=== PATIENT | female | born 1955 | race Caucasian/White ===

== ENCOUNTER 2025-05-13 15:27 | Inpatient (IN) | payer MEDICARE, BC ==
[~2025-05-13] VITALS: Ht 162.6 cm; Wt 83.9 kg
[2025-05-13] MEDS ORDERED: PIPERACI/TAZO 3.375GM/D5W 50ML PB IV ONE (16:04)
[2025-05-13] MEDS ORDERED: MORPHINE SULFATE INJ 4 MG/ML DISP.SYRIN ONE (16:05)
[2025-05-13 16:10] LABS: PLATELET COUNT (AUTO) 335 K/uL (150-450); RED BLOOD CELL COUNT(AUTO) 4.00 MIL/uL (4.0-5.2); RED CELL DISTRIBUTION WIDTH 19.0 % (11.5-15.0); WHITE BLOOD COUNT (AUTO) 10.4 K/uL (4.3-11.0)
[2025-05-13] MEDS ORDERED: ONDANSETRON HCL/PF 4 MG/2 ML VIAL ONE (16:12)
[2025-05-13 16:19] LABS: CALCIUM, SERUM 9.3 mg/dL (8.5-10.1); CREATININE 1.3 mg/dL (0.6-1.3); SODIUM SERUM 138.0 mmol/L (136-145); UREA NITROGEN, BLOOD 26.0 mg/dL (7-18)
[2025-05-13] MEDS: MORPHINE SULFATE INJ 2 MG/ML DISP.SYRIN IV ONE (16:20)
[2025-05-13] MEDS: PIPERACILLIN /TAZOBACTAM 3.375 G in IV D5W 50 ML IV ONE (16:20)
[2025-05-13 16:24] LABS: ASPARTATE AMINOTRANSFERASE 13.0 U/L (15-37); INR 3.19 (0.91-1.10); TOTAL PROTEIN, SERUM 7.1 g/dL (6.4-8.2)
[2025-05-13] MEDS: ONDANSETRON HCL/PF - ER 4 MG/2 ML VIAL IV ONE (16:28)
[2025-05-13 16:29] LABS: ERYTHROCYTE SEDIMENTATION RATE 63 MM/HR (0-30)
[2025-05-13] MEDS ORDERED: VANCOMYCIN 1 GM /D5W 250 ML PB IV ONE (17:09)
[2025-05-13] MEDS: VANCOMYCIN 1 GM in IV D5W 250 ML IV ONE (17:30)
[2025-05-13 18:00] VITALS: BP 167/85; TEMP 99.7; O2SAT 99
[2025-05-13] MEDS ORDERED: POTA10TA PO (18:09)
[2025-05-13] MEDS ORDERED: SEMA1PEN SQ (18:09)
[2025-05-13] MEDS ORDERED: ESZO2TAB31 PO (18:09)
[2025-05-13] MEDS ORDERED: WARF-58 PO (18:09)
[2025-05-13] MEDS ORDERED: [UNRECOGNIZED DRUG - CODE] PO (18:09)
[2025-05-13] MEDS ORDERED: GABA300C PO (18:09)
[2025-05-13] MEDS ORDERED: CARV6.252 PO (18:09)
[2025-05-13] MEDS ORDERED: HYDR-3980 PO (18:09)
[2025-05-13] MEDS ORDERED: DONE5TAB7 PO (18:09)
[2025-05-13] MEDS ORDERED: MEMA10TA56 PO (18:09)
[2025-05-13] MEDS ORDERED: PRED1TAB PO (18:09)
[2025-05-13] MEDS ORDERED: SERT25TA5 PO (18:09)
[2025-05-13] MEDS ORDERED: MYCO500T5 PO (18:09)
[2025-05-13] MEDS ORDERED: LOSA25TA27 PO (18:09)
[2025-05-13] MEDS ORDERED: DEXTROSE 50%-WATER 50 ML DISP.SYRIN IV PRN (18:30)
[2025-05-13] MEDS ORDERED: DOSING PER PHARMACY-VANCOMYCIN IV XX PRN (18:30)
[2025-05-13] MEDS ORDERED: ACETAMINOPHEN 325 MG TABLET PO PRN (18:30)
[2025-05-13] MEDS ORDERED: ONDANSETRON HCL/PF 4 MG/2 ML VIAL IVP PRN (18:30)
[2025-05-13] MEDS: MEMANTINE HCL 5 MG TABLET PO SCH (18:53)
[2025-05-13] MEDS: LOSARTAN POTASSIUM 25 MG TABLET PO SCH (18:53)
[2025-05-13] MEDS: CARVEDILOL 6.25 MG TABLET PO SCH (18:54)
[2025-05-13 20:00] VITALS: BP 139/84; TEMP 98.2; O2SAT 99
[2025-05-13 20:33] VITALS: BP 178/87; TEMP 98.2; O2SAT 99
[2025-05-13 20:40] VITALS: BP 139/84
[2025-05-13] MEDS: ENOXAPARIN SODIUM 80 MG/0.8 ML DISP.SYRIN SQ SCH (21:00)
[2025-05-13] MEDS: ZOLPIDEM TARTRATE 5 MG TABLET PO SCH (21:07)
[2025-05-13] MEDS: GABAPENTIN 300 MG CAPSULE PO SCH (21:07)
[2025-05-13] MEDS: BLOOD SUGAR DIAGNOSTIC 1 EACH STRIP VI SCH (21:07)
[2025-05-13] MEDS: DONEPEZIL 5 MG TABLET PO SCH (21:07)
[2025-05-13] MEDS ORDERED: CEFEPIME 1 GM in IV D5W 50 ML IV SCH (21:30)
[2025-05-13] MEDS ORDERED: CEFEPIME 1 GM VIAL ONE (21:51)
[2025-05-13] MEDS: CEFEPIME 1 GM in IV D5W 50 ML IV SCH (21:58)
[2025-05-13] MEDS: HYDROCODONE/APAP 10/325MG TABLET PO PRN (21:59)
[2025-05-14] MEDS: MORPHINE SULFATE INJ 2 MG/ML DISP.SYRIN IV PRN (01:36)
[2025-05-14] MEDS: VANCOMYCIN 750 MG in IV D5W 250 ML IV SCH (04:20)
[2025-05-14] MEDS ORDERED: CEFEPIME 1 GM VIAL ONE (05:37)
[2025-05-14 07:18] LABS: PLATELET COUNT (AUTO) 293 K/uL (150-450); RED BLOOD CELL COUNT(AUTO) 3.62 MIL/uL (4.0-5.2); RED CELL DISTRIBUTION WIDTH 19.2 % (11.5-15.0); WHITE BLOOD COUNT (AUTO) 5.5 K/uL (4.3-11.0)
[2025-05-14 07:30] VITALS: BP 165/71; TEMP 97.9; O2SAT 99
[2025-05-14] MEDS: MYCOPHENOLATE MOFETIL 250 MG CAPSULE PO SCH (08:13)
[2025-05-14] MEDS: SERTRALINE HCL 25 MG TABLET PO SCH (08:15)
[2025-05-14] MEDS: ALLOPURINOL 100 MG TABLET PO SCH (08:15)
[2025-05-14] MEDS: FERROUS SULFATE (325 MG) 325 MG/TAB TABLET PO SCH (08:15)
[2025-05-14 08:18] LABS: CALCIUM, SERUM 8.7 mg/dL (8.5-10.1); CREATININE 1.2 mg/dL (0.6-1.3); PHOSPHORUS 3.6 mg/dL (2.5-4.9); SODIUM SERUM 141.0 mmol/L (136-145); UREA NITROGEN, BLOOD 18.0 mg/dL (7-18)
[2025-05-14 09:00] VITALS: BP 149/72
[2025-05-14] MEDS: CEFEPIME 2 GM in IV D5W 100 ML IV SCH (10:07)
[2025-05-14] MEDS: IV NS 0.9% 1,000 ML IV ONE (10:07)
[2025-05-14] MEDS ORDERED: LIDOCAINE 1% INJ 50 ML MDV IJ ONE (11:30)
[2025-05-14] MEDS ORDERED: BUPIVACAINE 0.5 % PF 150 MG/30 ML VIAL ONE (11:30)
[2025-05-14] MEDS ORDERED: LIDOCAINE 1%-EPI 1:100,000 20 ML VIAL ONE (11:31)
[2025-05-14] MEDS: INSULIN REGULAR, HUMAN 100 UNIT/ML 3 ML VIAL SQ PRN (11:55)
[2025-05-14] MEDS ORDERED: BACITRACIN ZINC OINT (15 GM) 15 GM TUBE TP ONE (12:08)
[2025-05-14] MEDS ORDERED: FENTANYL PF 100MCG/2ML AMPUL ONE (12:23)
[2025-05-14 12:27] LABS: INR 2.57 (0.91-1.10)
[2025-05-14] MEDS ORDERED: VANCOMYCIN 1 GM VIAL ONE (12:44)
[2025-05-14 13:22] LABS: NEUTROPHILS % (MANUAL) 64 (42-76)
[2025-05-14 13:23] LABS: EOSINOPHILS % (MANUAL) 1 % (0-4); LYMPHOCYTES % (MANUAL) 27 % (16-48); MONOCYTES % (MANUAL) 8 % (0-11.0); PLATELET ESTIMATE ADEQUATE
[2025-05-14] MEDS: Magnesium 1GM/D5W 100ML PREMIX 100 ML IV SCH (14:04)
[2025-05-14 16:00] VITALS: BP_SYST 126; BP_SYST 132; BP_DIAS 65; BP_DIAS 82; TEMP 97.6; TEMP 98.1; O2SAT 100; O2SAT 96
[2025-05-14] MEDS: ARGININE/GLUTAMINE/CALCIUM BMB 1 EACH POWD.PACK PO SCH (17:30)
[2025-05-14 20:00] VITALS: BP 172/72; TEMP 99; O2SAT 99
[2025-05-14 20:35] VITALS: BP 162/75
[2025-05-14] MEDS: ALLOPURINOL 100 MG TABLET PO ONE (20:50)
[2025-05-14 21:33] LABS: APPEARANCE,URINE CLEAR (CLEAR); BLOOD, URINE NEGATIVE Ery/uL (NEGATIVE); LEUKOCYTE ESTERASE ,URINE NEGATIVE (NEGATIVE); NITRITE, URINE NEGATIVE (NEGATIVE); UGLUCOSE NEGATIVE (NEGATIVE)
[2025-05-14 21:40] LABS: ADD URINE CULTURE NO
[2025-05-14 21:59] LABS: EOSINOPHIL,URINE None Seen
[2025-05-14 22:04] LABS: CREATININE, URINE 29.8 MG/DL (30.0-125.0); URINE SODIUM, RANDOM 79.0 mmol/l (40-220); URINE TOTAL PROTEIN 27.0 mg/dL (0-11.9)
[2025-05-15 04:26] LABS: PLATELET COUNT (AUTO) 277 K/uL (150-450); RED BLOOD CELL COUNT(AUTO) 3.69 MIL/uL (4.0-5.2); RED CELL DISTRIBUTION WIDTH 18.6 % (11.5-15.0); WHITE BLOOD COUNT (AUTO) 6.8 K/uL (4.3-11.0)
[2025-05-15 04:46] LABS: CREATINE KINASE, TOTAL 36.0 U/L (26-192)
[2025-05-15 04:48] LABS: ASPARTATE AMINOTRANSFERASE 13.0 U/L (15-37); CALCIUM, SERUM 8.6 mg/dL (8.5-10.1); CREATININE 1.0 mg/dL (0.6-1.3); PHOSPHORUS 3.9 mg/dL (2.5-4.9); SODIUM SERUM 140.0 mmol/L (136-145); TOTAL PROTEIN, SERUM 6.4 g/dL (6.4-8.2); UREA NITROGEN, BLOOD 17.0 mg/dL (7-18)
[2025-05-15 04:58] LABS: INR 2.22 (0.91-1.10)
[2025-05-15 06:35] VITALS: BP 133/98
[2025-05-15 07:30] VITALS: BP 135/70; TEMP 98.4; O2SAT 95
[2025-05-15] MEDS: ASCORBIC ACID 500 MG TABLET PO SCH (09:04)
[2025-05-15] MEDS: WARFARIN SODIUM 5 MG TABLET PO SCH (09:10)
[2025-05-15] MEDS ORDERED: CEFE2FRO IV (11:13)
[2025-05-15] MEDS ORDERED: VANC1.5P36 IV (11:13)
[2025-05-15] MEDS: MUPIROCIN OINT 2% 22 GM TUBE TP SCH (14:30)
[2025-05-15 16:22] VITALS: BP 147/69; TEMP 97.7; O2SAT 100
[2025-05-15] MEDS: *INSULIN REGULAR(HUMULIN R)HUM 100 UNIT/ML VIAL SQ PRN (22:08)
[2025-05-15 22:37] VITALS: BP 149/70; TEMP 97.9; O2SAT 100
[2025-05-16 07:30] VITALS: BP 131/73; TEMP 98.1; O2SAT 98
[2025-05-16 08:07] LABS: PTH, INTACT 51 pg/mL (15-65)
[2025-05-16] MEDS: ARGININE/GLUTAMINE/CALCIUM BMB 1 EACH POWD.PACK PO SCH (09:16)
[2025-05-16 10:16] LABS: PLATELET COUNT (AUTO) 264 K/uL (150-450); RED BLOOD CELL COUNT(AUTO) 3.68 MIL/uL (4.0-5.2); RED CELL DISTRIBUTION WIDTH 18.6 % (11.5-15.0); WHITE BLOOD COUNT (AUTO) 6.4 K/uL (4.3-11.0)
[2025-05-16 10:27] LABS: INR 2.27 (0.91-1.10)
[2025-05-16 10:37] LABS: CALCIUM, SERUM 9.1 mg/dL (8.5-10.1); CREATININE 1.2 mg/dL (0.6-1.3); SODIUM SERUM 140.0 mmol/L (136-145); UREA NITROGEN, BLOOD 19.0 mg/dL (7-18)
[2025-05-16 20:00] VITALS: BP 123/66; TEMP 97.9; O2SAT 98
[2025-05-17 07:13] LABS: CALCIUM, SERUM 8.7 mg/dL (8.5-10.1); CREATININE 1.0 mg/dL (0.6-1.3); SODIUM SERUM 141.0 mmol/L (136-145); UREA NITROGEN, BLOOD 23.0 mg/dL (7-18)
[2025-05-17 08:00] VITALS: BP 140/64; TEMP 97.5; O2SAT 96
[2025-05-17 16:00] VITALS: BP 164/70; TEMP 97.9; O2SAT 100
[2025-05-17 20:00] VITALS: BP 166/61; TEMP 97.3; O2SAT 100
[2025-05-18 07:24] LABS: PLATELET COUNT (AUTO) 263 K/uL (150-450); RED BLOOD CELL COUNT(AUTO) 3.38 MIL/uL (4.0-5.2); RED CELL DISTRIBUTION WIDTH 19.1 % (11.5-15.0); WHITE BLOOD COUNT (AUTO) 6.6 K/uL (4.3-11.0)
[2025-05-18 07:50] VITALS: BP 150/83; TEMP 97.5; O2SAT 100
[2025-05-18 08:28] LABS: INR 2.49 (0.91-1.10)
[2025-05-18 08:41] VITALS: BP 150/83; TEMP 97.5; O2SAT 100
[2025-05-18] MEDS: VANCOMYCIN HCL 1.25 GM in IV D5W 250 ML IV SCH (09:20)
[2025-05-18 09:21] VITALS: BP 150/83
[2025-05-18 09:47] LABS: PHOSPHORUS 3.4 mg/dL (2.5-4.9)
[2025-05-18 09:51] LABS: CALCIUM, SERUM 9.2 mg/dL (8.5-10.1); CREATININE 1.0 mg/dL (0.6-1.3); SODIUM SERUM 141.0 mmol/L (136-145); UREA NITROGEN, BLOOD 23.0 mg/dL (7-18)
[2025-05-18 11:15] LABS: BASOPHILS % (MANUAL) 0 % (0.0-2.0); EOSINOPHILS % (MANUAL) 1 % (0-4); LYMPHOCYTES % (MANUAL) 18 % (16-48); MONOCYTES % (MANUAL) 7 % (0-11.0); NEUTROPHILS % (MANUAL) 74 (42-76); PLATELET ESTIMATE ADEQUATE
[2025-05-19 17:07] LABS: *SPE A/G RATIO 1.2 (0.7-1.7); *SPE ALBUMIN 2.9 g/dL (2.9-4.4); *SPE ALPHA-1-GLOBULIN 0.3 g/dL (0.0-0.4); *SPE ALPHA-2-GLOBULIN 0.6 g/dL (0.4-1.0); *SPE BETA GLOBULIN 1.0 g/dL (0.7-1.3); *SPE GLOBULIN, TOTAL 2.5 g/dL (2.2-3.9); *SPE M-SPIKE Not Observed g/dL (Not Observed); *SPE PROTEIN TOTAL 5.4 g/dL (6.0-8.5); *SPEGAMMA GLOBULIN 0.5 g/dL (0.4-1.8)
== END 2025-05-18 12:25 | disposition home health service (06) | DRG 623 ==
LOC: ER 15:28 → MED 17:11
PROVIDERS: ADMIT Nurse Practitioner Acute Care; ATTEND Nurse Practitioner Acute Care
PROC: 0HRMXK3 Replacement of Right Foot Skin with Nonautologous Tissue Substitute, Full Thickness, External Approach (ICD-10-PCS; 2025-05-14)
PROC: 0QBN0ZX Excision of Right Metatarsal, Open Approach, Diagnostic (ICD-10-PCS; 2025-05-14)
PROC: 02HV33Z Insertion of Infusion Device into Superior Vena Cava, Percutaneous Approach (ICD-10-PCS; 2025-05-14)
PROC: B548ZZA Ultrasonography of Superior Vena Cava, Guidance (ICD-10-PCS; 2025-05-14)
PROC: 0KBV0ZZ Excision of Right Foot Muscle, Open Approach (ICD-10-PCS; principal; 2025-05-14 12:00)
DX: E11.69 Type 2 diabetes mellitus with other specified complication (principal); D68.59 Other primary thrombophilia; E44.1 Mild protein-calorie malnutrition; M86.171 Other acute osteomyelitis, right ankle and foot; M86.671 Other chronic osteomyelitis, right ankle and foot; D84.821 Immunodeficiency due to drugs; L03.115 Cellulitis of right lower limb; E11.621 Type 2 diabetes mellitus with foot ulcer; L97.519 Non-pressure chronic ulcer of other part of right foot with unspecified severity; N17.9 Acute kidney failure, unspecified; D50.9 Iron deficiency anemia, unspecified; E88.09 Other disorders of plasma-protein metabolism, not elsewhere classified; E11.42 Type 2 diabetes mellitus with diabetic polyneuropathy; Z95.2 Presence of prosthetic heart valve; Z79.01 Long term (current) use of anticoagulants; M89.8X9 Other specified disorders of bone, unspecified site; M21.071 Valgus deformity, not elsewhere classified, right ankle; M19.90 Unspecified osteoarthritis, unspecified site; E66.01 Morbid (severe) obesity due to excess calories; I10 Essential (primary) hypertension; H15.002 Unspecified scleritis, left eye; Z79.624 Long term (current) use of inhibitors of nucleotide synthesis; Z68.31 Body mass index [BMI] 31.0-31.9, adult; M62.171 Other rupture of muscle (nontraumatic), right ankle and foot; M21.41 Flat foot [pes planus] (acquired), right foot; E11.610 Type 2 diabetes mellitus with diabetic neuropathic arthropathy; E11.51 Type 2 diabetes mellitus with diabetic peripheral angiopathy without gangrene; E86.9 Volume depletion, unspecified
CPT/HCPCS: 36415; 71045-TC; 73610-TC; 73630-TC; 73718-TC; 73721-TC; 80048-TC; 80053-TC; 80202-TC; 81001; 82550-TC; 82570-TC; 82962-TC; 83735-TC; 83970; 84100-TC; 84155; 84165; 84300-TC; 85025-TC; 85027-TC; 85610-TC; 85652-TC; 85730-TC; 86140-TC; 86850-TC; A2007; A4217; A4223; A6223; A6253; A6403; G0378; J0692; J1650; J1815; J2270; J2405; J2543; J2704; J3010; J3373; J3374; J3475; J3490; J7030; J7060; J7512; J7517